=== PATIENT | male | born 1985 | race Two or more races ===

== ENCOUNTER 2022-03-20 21:03 | Emergency (ER) | payer OTHER ==
[~2022-03-20] VITALS: Ht 167.6 cm; Wt 77.6 kg
== END 2022-03-20 22:08 | disposition home or self-care (01) ==
LOC: ER 21:03
DX: G52.8 Disorders of other specified cranial nerves (principal); Z88.0 Allergy status to penicillin

== ENCOUNTER 2025-05-15 18:43 | Emergency (ER) | payer OTHER ==
[~2025-05-15] VITALS: Ht 165.1 cm; Wt 72.6 kg
== END 2025-05-15 18:58 | disposition left against medical advice (07) ==
LOC: ER 18:43
DX: Z53.21 Procedure and treatment not carried out due to patient leaving prior to being seen by health care provider (principal)